=== PATIENT | male | born 2000 | race Caucasian/White ===

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

== ENCOUNTER → 2021-02-07 | Outpatient (CLI) | payer BC | END | disposition home or self-care (01) | LOC: COVID19 13:31 | PROVIDERS: ATTEND Family Medicine | DX: Z20.822 Contact with and (suspected) exposure to COVID-19 (principal) ==

== ENCOUNTER → 2021-02-16 | Outpatient (CLI) | payer BC | END | disposition home or self-care (01) | LOC: RAD 14:47 | PROVIDERS: ATTEND Family Medicine | DX: R06.02 Shortness of breath (principal); R05 Cough ==

== ENCOUNTER → 2021-04-12 | Outpatient (CLI) | payer BC ==
[2021-04-12 13:32] LABS: HEMATOCRIT 44.1 % (42.0-52.0); MEAN CORPUSCULAR HGB CONC 34.9 g/dl (33.0-37.0); MEAN PLATELET VOLUME 10.9 fl (9.6-12.3); RED BLOOD COUNT 5.13 10*6/uL (4.50-5.90); RED CELL DISTRI WIDTH 11.9 % (0-14.5); WHITE BLOOD COUNT 7.4 10*3/uL (4.8-10.8)
[2021-04-12 13:50] LABS: ALBUMIN 3.9 gm/dl (3.1-4.5); ALKALINE PHOSPHATASE 105 U/L (45-117); BUN 10 mg/dl (7-24); CHLORIDE 107 mmol/L (98-107); CHOLESTEROL 161 mg/dL (<200); CPK 87 U/L (39-308); CREATININE 0.86 mg/dL (0.70-1.30); LDL CHOLESTEROL 100 mg/dL (9-159); POTASSIUM 3.6 mmol/L (3.5-5.1); SGOT/AST 12 IU/L (3-35); SGPT/ALT 21 U/L (12-78); SODIUM 140 mmol/L (136-145); TRIGLYCERIDES 81 mg/dl (<150)
[2021-04-12 13:57] LABS: VITAMIN D, 25-HYDROXY 18.8 ng/mL (30-100)
== END | disposition home or self-care (01) ==
LOC: LAB 13:17
PROVIDERS: ATTEND Family Medicine
DX: F41.1 Generalized anxiety disorder (principal); E55.9 Vitamin D deficiency, unspecified; E74.00 Glycogen storage disease, unspecified; R53.83 Other fatigue; F90.9 Attention-deficit hyperactivity disorder, unspecified type

== ENCOUNTER 2023-03-22 01:12 | Emergency (ER) | payer BC ==
[~2023-03-22] VITALS: Ht 182.8 cm; Wt 108.9 kg
[2023-03-22] MEDS ORDERED: ATOMOXETINE HCL10 MG PO (01:23)
[2023-03-22] MEDS ORDERED: BUSPAR5 MG PO (01:23)
[2023-03-22] MEDS ORDERED: OFLOXACIN 5 ML5 M3 OT (02:07)
== END 2023-03-22 02:10 | disposition home or self-care (01) ==
LOC: ED 01:12
DX: H72.91 Unspecified perforation of tympanic membrane, right ear (principal); R11.0 Nausea